=== PATIENT | male | born 1950 | race Caucasian/White ===

== ENCOUNTER 2022-01-24 00:43 | Outpatient (CLI) | payer MEDICARE, MEDICAID, SELFPAY ==
--- NOTE | 2022-01-24 09:15 | DI.NM_ITS ---
APPROVED REPORT Exam: Exercise Treadmill Patient Location: Out-Patient Room/Bed: Stress Nurse: Nataliya Bauer RN Ordering Provider:VALERIA BAL, Contact Number: [phone] BMI: 42.37 Baseline Rhythm: Sinus Rhythm Comment: Sinus arrhythmia Indications: new onset angina pectoris Medical History Medical History: HLD, obesity, ED, Depression, ANTHONY, HTN, Afib, GERD, DMII, DVT, syncope Cardiac Medications: Dofetilide, lantus, pantoprazole, rosucastatin, xarelto Allergies: NKA Cardiac Risk Factors: Family Hx, HTN, DM, HLD, Obesity Previous Cardiac Procedures: Watchman (1999), Cardioversion Pretest Chest Pain Characteristics: none Exercise History: Sedentary Physical Disabilities: Back Lung Sounds: Clear to auscultation Heart Sounds: Regular Stress Test Details Test: Exercise stress testing was performed using a Bertrand protocol. Nuclear Acquisition: Rest Tc-99m/Stress Tc-99m 1 day Rest Isotope: Tc-99m Sestamibi. Dose: 15 Date: 01/24/2022 Injection Time: 0930 Stress Isotope: Tc-99m Sestamibi. Dose: 45 Date: 01/24/2022 Injection Time: 1115 HR Resting HR Supine: 85 bpm Max Heart Rate (APMHR): 148.361675 bpm Resting HR Standin bpm Target HR (85% APMHR): 125.466653 bpm Max HR Achieved: 162 bpm % of APMHR: 109.46 Recovery HR: 86 bpm HR response to stress: Abnormal HR response to stress BP Resting BP Supine: 138/84 mmHg Resting BP Standin/82 mmHg Max BP: 168/92 mmHg Recovery BP: 130/78 mmHg BP response to stress: Normal blood pressure response to stress. ECG Resting ECG: Sinus Rhythm Ectopy: none Comment: sinus arrhythmia Stress ECG: Sinus Rhythm, Sinus Tachycardia ST Change: No significant ST segment changes noted Arrhythmia: None Recovery ECG: Sinus Rhythm Recovery ST Change: No significant ST segment changes noted Recovery Arrhythmia: None Clinical Reason for Termination: Fatigue Stress Symptoms: none Exercise duration: 3 min05 sec Highest Stage Reached: Stage 2: 2.5 mph at 12% grade. Exercise capacity: 4.7 METs Coon Treadmill Score: 2.8 Rate Pressure Product: [id number] Stress ECG Conclusion 1. Resting electrocardiogram showed poor R wave progression 2. Patient exercised on the Bertrand protocol and completed a workload of 4.7 METS, stopping due to fati gloria 3. Normal blood pressure response to exercise. Rapid rise in heart rate noted with exercise. The p atient achieved greater than 100% of predicted heart rate for age 4. There was no electrocardiographic evidence of myocardial ischemia 5. There were no significant dysrhythmias Coon Treadmill Score is 2.8 which is Moderate risk. Stress Test Summary STAGE Time (mins) Speed (mph) Grade (%) HR BP SYMPTOMS METS Supine 85 138/84 Standing 104 140/82 1 3 1.7 10 133 142/86 4.6 1 min recovery 135 144/88 3 min recovery 105 168/92 6 min recovery 86 130/78 MPI Conclusion Normal myocardial perfusion without evidence of ischemia or prior infarction EF 60% normal wall motion Radiologist Interpretation Radiologist agrees with Wheel Tuner's Interpretation. Radiologist Interpretation by: Emani Blood MD Interpretation Date/Time: 01/29/2022 16:19:26
== END 2022-01-24 01:03 ==
PROVIDERS: PCP Family Medicine; Visit Provider Family Medicine
DX: I20.8 Other forms of angina pectoris (principal)
CPT/HCPCS: 78452; 93016; 93018; 93017

== ENCOUNTER 2023-02-05 09:41 | Outpatient (CLI) | payer OTHER, SELFPAY ==
[2023-02-05 10:42] VITALS: BP 136/84; PULSE 70; RESP 20; TEMP 36.6; O2SAT 94
--- NOTE | 2023-02-05 11:05 | DI.RAD_ITS ---
Exam(s) XR PAIN CLINIC LUMBAR SP 2V EXAM: XR PAIN CLINIC LUMBAR SP 2V CLINICAL HISTORY: Dx: Lumbar radiculopathy TECHNIQUE: 2D and realtime digital imaging was performed. CONTRAST MATERIAL: Refer to procedure report. COMPARISON: No exams were available for comparison FINDINGS: Fluoroscopy was provided for Dr. Purcell during the performance of a lumbar epidural steroid injection. Please refer to the procedure report for complete details. Ka,r=19.1 mGy IMPRESSION:
[2023-02-05] MEDS: methylPREDNISolone ACETATE 80 MG/ML VIAL IJ (11:09)
[2023-02-05] MEDS: Omnipaque 240 MG/ML 50 ML BTL IJ (11:10)
[2023-02-05 11:14] VITALS: BP 137/87; PULSE 80; RESP 16; O2SAT 97
--- NOTE | 2023-02-05 12:28 | PDOC.PAIN ---
Date of service: 02/05/23 Time of Service: 11:33 Pain Clinic Procedure Note Procedure Note Procedure Note: Lumbar Epidural Steroid Injection Procedure Note COMMENTS: He has been directly referred for this procedure from his neurosurgeon. He has low back pain radiating down the right leg (lateral thigh and calf) with some weakness with dorsiflexion to the left ankle. I did review this and his MRI which shows central and foraminal compression at L4-L5. I did discuss this procedure with the patient in detail and he did consent. Dx: Lumbosacral radiculopathy Pre-procedure pain VAS was 9/10. Marshal Manzano has been referred to the [facility] for lumbar epidural steroid injection. The patient was greeted by the nurse who verified patients name and . Patient was then taken to the fluoroscopy suite. The patient was interviewed and the medial record reviewed. There were no medical, pharmacologic, radiographic, or other structural contraindications to attempting fluoroscopically guided lumbar epidural steroid injection. Risks and expected side effects as well as potential benefits of the procedure were reviewed and voiced concerns expressed. The patient consent form was signed and witnessed. Standard patient time-out procedure was performed. The patient was placed in the prone position on the fluoroscopy table and automated blood pressure cuff and pulse oximeter applied. The skin entry point for entering/approaching the epidural space at L5-L5 and marked. Following thorough chlorhexadine preparation of the skin and draping and 1% lidocaine infiltration of the skin entry point and subcutaneous tissues, a 18 gauge Touhy needle was placed under fluoroscopic guidance and with loss of resistance technique into the epidural space. Needle tip placement and depth were aided and confirmed by fluoroscopy. There was no paresthesia or return of blood or CSF through the needle. 1 cc's of Omnipaque 240 was injected with clear epidural spread confirmed with fluoroscopy. 80mg depomedrol was injected. There was not any unusual discomfort expressed by Marshal Manzano. Patient's vital signs were stable throughout the procedure and were as recorded in nursing records. Follow up plans and appointments were discussed with patient. Post procedure instruction was given as documented in nursing records and having met discharge criteria and was discharged from the [facility]. COMMENTS: If this procedure is helpful, it can be completed up to 4 times per 12 months. Post-procedure pain VAS was 0/10. Keanu Purcell DO, MPH ABPMR-Pain Management [facility]
== END 2023-02-05 09:42 | disposition home or self-care (01) ==
PROVIDERS: PCP Family Medicine; Visit Provider Preventive Medicine Occupational Medicine
DX: M54.17 Radiculopathy, lumbosacral region (principal); M54.50 Low back pain, unspecified
CPT/HCPCS: 62323; 72100; J1040; Q9967

== ENCOUNTER 2024-05-20 13:23 | Emergency (ER) | payer OTHER, SELFPAY ==
--- NOTE | 2024-05-20 13:15 | DI.RAD_ITS ---
Exam(s) XR HIP RT AP LAT ONLY EXAM: XR HIP RT AP LAT ONLY CLINICAL HISTORY: HIP PAIN. TECHNIQUE: 2D digital imaging was performed. Two images were obtained. AP pelvis and cross-table la teral views were obtained. COMPARISON: No priors for comparison. FINDINGS: The patient has a right total hip replacement. There is a superior and lateral dislocation of the fe moral component from the acetabular component. The lateral view is suboptimal due to patient positio rom and body habitus. No obvious fracture is identified at this time. IMPRESSION: Superior lateral dislocation of the femoral prosthetic component from the acetabular component. DATA REPOSITORY: RADIATION DOSE DELIVERED:
[2024-05-20 13:21] VITALS: BP 151/89; PULSE 78; RESP 18; TEMP 37; O2SAT 97
[2024-05-20 13:52] VITALS: RESP 24; O2SAT 94
[2024-05-20 13:55] VITALS: BP 115/73; PULSE 78; RESP 24; TEMP 36.8; O2SAT 94
[2024-05-20] MEDS: Propofol 200 MG/20 ML VIAL 100 MG IVP (13:55)
--- NOTE | 2024-05-20 14:31 | DI.RAD_ITS ---
Exam(s) XR HIP RT AP LAT ONLY EXAM: XR HIP RT AP LAT ONLY CLINICAL HISTORY: S/P REDUCTION. TECHNIQUE: 2D digital imaging was performed. Two images were obtained. AP and lateral views were ob tained. COMPARISON: CR XR HIP RT AP LAT ONLY from 05/20/2024 FINDINGS: BONES: There are stable post operative changes of a right total hip replacement present. No fracture or dislocation. There has been successful reduction of the prosthetic dislocation. JOINTS: The orthopedic hardware is in good position. No evidence of hardware loosening. SOFT TISSUE: There are surgical clips in the soft tissues of the leg. IMPRESSION: Stable right total hip replacement. Successful reduction of the previously seen right hip prosthetic dislocation. DATA REPOSITORY: RADIATION DOSE DELIVERED:
[2024-05-20 15:26] VITALS: BP 123/74; PULSE 70; RESP 15; TEMP 37; O2SAT 92
--- NOTE | 2024-05-20 18:06 | ED.GENADUL_ITS ---
Discharge Plan Disposition Patient Disposition: Home Discharge Details Clinical Impression: S/P prosthetic total arthroplasty of the hip, Dislocation of right hip Primary Care Provider: Andrez Gage ED Provider: Ron Mcclelland Home Meds and New Rx's Prescriptions: No Action allopurinol 300 mg tablet 300 mg PO DAILY codeine-guaifenesin 10-100 mg/5 mL liquid 5 ml PO ONCE PRN dofetilide [Tikosyn] 250 mcg capsule 250 mcg PO Q12H gabapentin 300 mg capsule 300 mg PO TID naloxone 4 mg/actuation spray,non-aerosol 4 mg intranasal Q3M PRN Rx Instructions: spray 1 dose into ONE nostril; alternate nostrils w each dose until help arrives pantoprazole 40 mg tablet,delayed release (DR/EC) 40 mg PO DAILY paroxetine HCl 10 mg tablet 10 mg PO DAILY rosuvastatin 40 mg tablet 40 mg PO DAILY tamsulosin 0.4 mg capsule 0.4 mg PO BID Trulicity 4.5 mg/0.5 mL pen injector 4.5 mg subcut .weekly tramadol 50 mg tablet 100 mg PO BID PRN Xarelto 20 mg tablet 20 mg PO DAILY Rx Instructions: must administer with evening meal Discharge Instructions Instructions: Hip Dislocation Additional Instructions: * please wear hip wrap and knee brace to help keep your hip in alignment and limit mobility of that joint * use caution with movements, particularly bending that may result in a recurrent injury * call your orthopedic doctor tomorrow to follow up HPI General Date/Time Provider Initiated Documentation: 05/20/24 13:24 . Limitations to Documentation: no limitations . Information obtained by: patient . HPI Narrative: 74-year-old gentleman with past medical history including pulmonary embolism, diabetes, hypertension, A-fib on anticoagulation presents via ambulance with acute onset right hip pain. Patient reports that he was bending over and while trying to tie his shoe his right hip came out of socket. He has not been able to stand or bear weight. EMS reports that his leg was shortened and rotated. They gave Tylenol and route. Patient reports that this has happened several times since his prosthesis. He reports that he has had the prosthesis in place for about 20 years. He follows with orthopedics at [facility]. Related Data Home Medications Medication Instructions Recorded Confirmed allopurinol 300 mg tablet 300 mg PO DAILY 01/28/23 05/20/24 codeine 10 mg-guaifenesin 100 mg/5 5 ml PO ONCE PRN 01/28/23 05/20/24 mL oral liquid dofetilide 250 mcg capsule 250 mcg PO Q12H 01/28/23 05/20/24 (Tikosyn) dulaglutide 4.5 mg/0.5 mL 4.5 mg subcut .weekly 01/28/23 05/20/24 subcutaneous pen injector (Trulicity) gabapentin 300 mg capsule 300 mg PO TID 01/28/23 05/20/24 naloxone 4 mg/actuation nasal spray 4 mg intranasal Q3M PRN 01/28/23 09/26/23 pantoprazole 40 mg tablet,delayed 40 mg PO DAILY 01/28/23 05/20/24 release paroxetine HCl 10 mg tablet 10 mg PO DAILY 01/28/23 05/20/24 rivaroxaban 20 mg tablet (Xarelto) 20 mg PO DAILY 01/28/23 05/20/24 rosuvastatin 40 mg tablet 40 mg PO DAILY 01/28/23 05/20/24 tamsulosin 0.4 mg capsule 0.4 mg PO BID 01/28/23 05/20/24 tramadol 50 mg tablet 100 mg PO BID PRN 01/28/23 05/20/24 Allergies Allergy/AdvReac Type Severity Reaction Status Date / Time No Known Allergies Allergy Unverified 09/26/23 13:12 General Stated Complaint: Fall/Non TraumaCriteria RONEN: 3 Exam Narrative Exam Narrative: Review of Systems: All systems reviewed & are unremarkable except as noted in HPI and below Well-developed, no acute distress NCAT PERRL, normal conjunctiva RRR Unlabored respiratory effort Nondistended abdomen Right lower extremity with tenderness around the hip which is obviously dislocated. The leg is shortened and internally rotated No rashes or lesions. no focal neurologic deficits Appropriate mood and affect Course Vital Signs Vital signs: Vital Signs Temperature 37 C 05/20/24 13:21 Pulse 78 05/20/24 13:21 Respiratory Rate 18 05/20/24 13:21 Blood Pressure 151/89 H 05/20/24 13:21 Pulse Oximetry 97 05/20/24 13:21 Temperature 37.0 C 05/20/24 15:26 Temperature Source Temporal Artery Scan 05/20/24 13:55 Pulse 70 05/20/24 15:26 Respiratory Rate 15 05/20/24 15:26 Respiratory Effort Normal, Non-Labored 05/20/24 14:06 Blood Pressure 123/74 05/20/24 15:26 Pulse Oximetry 92 05/20/24 15:26 Respiratory End-tidal CO2 9 05/20/24 13:52 Oxygen Delivery Method Room Air 05/20/24 13:55 Oxygen Flow Rate 0 05/20/24 13:55 Pain Level 0 05/20/24 15:26 Procedures Orthopedic Joint Reduction Joint #1: Time Out Performed: Yes Side: right Joint Reduction Location: hip Analgesia: procedural sedation Shoulder Technique Used (if applicable): other (captain cedeno) Post-reduction neuro exam: intact and no change Post-reduction vascular: intact and no change Post Reduction X-Ray Obtained: Yes Post Reduction X-Ray Results: reduced Splint Applied: Yes Patient Tolerated Procedure: well and no complications Procedural Sedation Indication: fracture/dislocation reduction ASA Class: II Time of Last PO Intake: 09:30 Preparation: quality assurance monitor chassis applied, pulse oximeter, capnometry used, supplemental O2 applied, suction/airway equipment at bedside and IV secured IV Propofol dose (mg): 50 Patient Tolerated Procedure: well and no complications Medical Decision Making Emergent evaluation of acute right hip pain. Examination is consistent with dislocation. I reviewed the patient's medical record at [facility] and noted multiple prior dislocations. At this time he is neurovascularly intact and the skin surrounding the hip is closed. There are no other injuries associated with this hip dislocation. The patient was consented for procedural sedation and reduction of the hip. Procedural sedation was performed, after 50 mg of propofol the hip was pulled back into place with out significant effort and the patient tolerated the procedure well. X-ray reviewed and confirms reduction of the hip. A knee immobilizer was applied to the right lower extremity as well as a pelvic binder was loosely applied around the hips just to still limit the range of motion of the hip to prevent further dislocations. Patient has a cane at home he will use to help ambulate. He understands that he needs to call his orthopedic doctor tomorrow. Given his recurrent dislocations of this prosthetic joint, he is at high risk for further dislocation Medical Records Medical records reviewed: Yes I reviewed the patient's medical records. 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 Hypertensive disorder DVT (deep venous thrombosis) Gout GERD (gastroesophageal reflux disease) Familial hypercholesterolemia Erectile dysfunction Depressive disorder Chronic pain Chronic low back pain Atrial fibrillation Aneurysm Surgical History History of total hip replacement H/O total knee replacement H/O hernia repair Hx of vascular surgery Hx of cholecystectomy H/O cystoscopy H/O bladder repair surgery H/O colonoscopy Family History Father Emphysema of lung Brother Gout Mother Pulmonary embolism Social History Smoking/Tobacco Use Status: Never Smoking risk assessment performed?: Yes Alcohol Intake: never Substance use type: does not use Housing: house
== END 2024-05-20 15:55 | disposition home or self-care (01) ==
PROVIDERS: Emergency Provider Emergency Medicine; PCP Family Medicine
DX: S73.004A Unspecified dislocation of right hip, initial encounter (principal); Z96.641 Presence of right artificial hip joint; W19.XXXA Unspecified fall, initial encounter
CPT/HCPCS: 27266; 36416; 82962; 96374; 99284; 73502; 99283; J2704

== ENCOUNTER 2025-07-20 14:33 | Outpatient (CLI) | payer MEDICARE, SELFPAY ==
[2025-07-20 14:58] VITALS: BP 119/93; PULSE 95; RESP 18; TEMP 37; O2SAT 96
[2025-07-20 15:22] VITALS: PULSE 86; PULSE 90; RESP 17; O2SAT 95
[2025-07-20 15:24] VITALS: BP 160/116; PULSE 82; PULSE 92; RESP 15; O2SAT 95
[2025-07-20 15:30] VITALS: PULSE 84; PULSE 92; RESP 12; O2SAT 96
--- NOTE | 2025-07-20 15:30 | DI.RAD_ITS ---
Exam(s) XR PAIN CLINIC SACRIOILIAC 2V EXAM: XR PAIN CLINIC SACRIOILIAC 2V CLINICAL HISTORY: DX: Bilateral Sacroiliac Joint Dysfunction. TECHNIQUE: Fluoroscopy was provided for the referring physician for guidance with performing pain clinic injection procedure. COMPARISON: No exams were available for comparison FINDINGS: Please see procedure note for details. Fluoro time: 24.6 seconds RADIATION DOSE DELIVERED: Ka,r=14.39 mGy
[2025-07-20 15:31] VITALS: BP 124/93; PULSE 89; PULSE 92; RESP 10; O2SAT 96
[2025-07-20] MEDS: Omnipaque 240 MG/ML 50 ML BTL IJ (15:37)
[2025-07-20] MEDS: Nerve Block Tray 1 EACH MC (15:37)
[2025-07-20] MEDS: methylPREDNISolone ACETATE 40 MG/ML VIAL IJ (15:38)
--- NOTE | 2025-07-25 12:32 | PDOC.PAIN_ITS ---
Date of service: 07/20/25 Time of Service: 15:35 Pain Managment Procedure Note Procedure Note Procedure Note: PROCEDURE NOTE BILATERAL INTRA-ARTICULAR SACROILIAC JOINT INJECTION Date of Service: July 20, 2025 Patient: Marshal Manzano Provider: Keanu Swan DO, MPH COMMENTS: I previously evaluated the patient in the office and their symptoms in relation to the sacroiliac joint pain have remained the same. Pre-operative diagnosis: Sacroiliac joint dysfunction ICD-10 M53.3 Post-operative diagnosis: Same Pre-procedure pain: VAS= 6/10 Marshal Manzano has been referred to our [facility] for a Bilateral intra-articular Sacroiliac joint injection. Marshal was interviewed and the medical record reviewed. There were no medical, pharmacologic, radiographic or other structural contraindications to attempting a fluoroscopically-guided, contrast-enhanced, intra-articular Sacroiliac joint injection. The risks, benefits, and potential side effects of this procedure were reviewed with the patient. Questions and concerns were addressed. After it was clear that Marshal was fully informed about the procedure, the printed consent form was signed by the patient and myself. Marshal was placed in the prone position on the fluoroscopy table and an automated blood pressure cuff, 3 lead EKG, and pulse oximeter were applied. The skin entry point for approaching the Left sacroiliac joint was identified under the most advantageous fluoroscopic view and marked. Following thorough Chlorhexadine preparation of the skin and draping with sterile surgical drapes, 2 mls of 1% lidocaine was infiltrated into the skin at the entry point and the surrounding subcutaneous tissues. Next, a 3.5 22G spinal needle was placed under fluoroscopic guidance into the Left sacroiliac joint. Intra-articular placement was confirmed by a clear arthrogram resulting from the injection of 0.25ml of Omnipaque-240. Next, 1 ml of Depo- Medrol 40 mg/ml was injected intra- articularly with an initial reproduction of a significant component of the usual pain. This was followed with 1 ml of 1% Lidocaine. The needle was then removed without difficulty. (49 ml of Omnipaque-240 was wasted). The exact procedure was completed on the opposite sacroiliac joint. Marshal's vital signs were stable throughout the procedure and were as recorded in nursing records. Follow up plans and appointments were discussed with Marshal. Post procedure instructions were given as documented in nursing records. Having met discharge criteria, Marshal was discharged from the [facility]. COMMENTS: Post-procedure pain: VAS= 6/10. If the patient receives at least 50% improvement in pain and/or function for at least 3 months, this procedure can be repeated if needed. I personally performed this entire procedure. KEANU SWAN DO, MPH ABPMR-subspecialty board certification in Pain Medicine [facility] Coding Conscious Sedation used for procedure: No CPT Codes: SI Joint Inj; incl Fluoro * BILATERAL* - [id number] ([id number]) Additional Codes: Date of Service (65526) Date of service: 07/20/25 Diagnoses: Sacroiliac joint dysfunction
== END 2025-07-20 14:34 | disposition home or self-care (01) ==
LOC: PC 14:34
PROVIDERS: PCP Family Medicine; Visit Provider Preventive Medicine Occupational Medicine
DX: M54.50 Low back pain, unspecified (principal); M53.3 Sacrococcygeal disorders, not elsewhere classified
CPT/HCPCS: 27096; 72200; J1010; Q9967

== ENCOUNTER 2025-09-26 08:58 | Outpatient (CLI) | payer MEDICARE, SELFPAY ==
--- NOTE | 2025-09-26 06:00 | DI.RAD_ITS ---
Exam(s) XR PAIN CLINIC LUMBAR SP 2V EXAM: XR PAIN CLINIC LUMBAR SP 2V CLINICAL HISTORY: DX: Lumbar Radiculopathy. TECHNIQUE: Fluoroscopy was provided for the referring physician for guidance with performing pain clinic injection procedure. COMPARISON: No exams were available for comparison FINDINGS: Please see procedure note for details. Fluoro time: 49 seconds RADIATION DOSE DELIVERED: Vandanar=31.9 mGy
[2025-09-26 07:11] VITALS: BP 107/84; PULSE 86; RESP 18; TEMP 36.9; O2SAT 98
--- NOTE | 2025-09-26 09:25 | PDOC.PAIN ---
Date of service: 09/26/25 Time of Service: 10:10 Pain Managment Procedure Note Procedure Note Procedure Note: Lumbar Interlaminar Epidural Steroid Injection ? Location: L5-S1 ? Pre-procedure Diagnosis: M54.16- Radiculopathy, LUMBAR region ? Post-procedure Diagnosis:? The same as above ? Sedation:? ? None ? Medication: Depo-Medrol 80 mg, Omnipaque 1 mL ? Estimated blood loss:? less than 2 ml ? Surgeon:? Bernardino Rivera MD COMMENT: Patient has radiofrequency ablation and SI joint injections without help. He is status post decompressive surgery at L4-5. Plan today will do epidural injection. I could not get access. I was able to get him at the L5-S1 level. His glucose was 212 so I will be 40 mg Depo-Medrol was used. ? Procedure Detail:? The procedure and potential risks were explained to the patient and informed written consent was obtained. The patient was escorted to the procedure room and placed in the prone position. Pillows were utilized for proper positioning and comfort. Time out was performed in the procedure room with nursing staff confirming the patient's identity, procedure to be performed, allergies, and any blood thinning or anti-platelet medications.? The patient's low back was prepped with ChloraPrep and draped in a sterile fashion. Sterile technique was maintained throughout the procedure.? Sterile gloves were used, a face mask was worn, and new single dose vials of all medications were used with the top being swabbed with alcohol and given time to dry prior to withdrawal of medication. Lidocane 1% was used to anesthetize the skin.Using a 25-gauge 1.5 inch needle, 1% lidocaine was instilled into the superficial soft tissue overlying the targeted area to provide local anesthesia. With fluoroscopic guidance, a 17 -gauge Tuohy needle was advanced toward the interlaminar space of L5-S1. The needle was then advance through the ligamentum flavum and into the posterior epidural space using the loss of resistance technique. Correct needle placement was confirmed through review of the AP and lateral fluoroscopic views. Following negative aspiration, 1 ml of Omnipaque 240 contrast was injected which confirmed good flow throughout the epidural space and no evidence of vascular flow or flow into adjacent compartments. Next, following negative aspiration, 1 ml of normal saline and 40mg of Depo-Medrol was injected. The needle was gently removed. The patient tolerated the procedure well and was transported to the recovery area for observation and discharge instructions. Permanent images saved and recorded. PAIN PRE-PROCEDURE 8 /10 POST-PROCEDURE 0/10 Plan:? Follow up prn. COMMENT: Advised the patient to check his glucose at least twice a day and adjust his insulin if needed. If his sugars are over 300 he should call his PCP. Regarding further treatments the only other option would be consideration for spinal cord stimulator. I would refer him to [facility] pain clinic. I have given him some information about Ebix. Lastly and probably the best option for him would be medical management. Maybe a low-dose tramadol or a Butrans patch.. He is only taking acetaminophen currently. Coding Conscious Sedation used for procedure: No CPT Codes: Inj Spine L/S w/Imaging - [id number] ([id number] ~G) Additional Codes: Date of Service () Diagnoses: M54.16- Radiculopathy, LUMBAR region
[2025-09-26 09:33] VITALS: PULSE 94; O2SAT 95
[2025-09-26 09:40] VITALS: PULSE 82; O2SAT 95
[2025-09-26 09:50] VITALS: PULSE 71; O2SAT 96
[2025-09-26] MEDS: Epidural Tray 1 EACH MC (10:10)
[2025-09-26] MEDS: Normal Saline 20 ML VIAL IJ (10:11)
[2025-09-26] MEDS: Lidocaine 1% Pres-Free 5 ML VIAL IJ (10:11)
[2025-09-26] MEDS: Omnipaque 240 MG/ML 50 ML BTL IJ (10:12)
[2025-09-26] MEDS: methylPREDNISolone ACETATE 40 MG/ML VIAL IJ (10:12)
== END 2025-09-26 08:59 | disposition home or self-care (01) ==
LOC: PC 08:59
PROVIDERS: PCP Family Medicine; Visit Provider Anesthesiology Pain Medicine
DX: M54.50 Low back pain, unspecified (principal); M54.16 Radiculopathy, lumbar region
CPT/HCPCS: 62323; 72100; J1010; J2003; Q9967